=== PATIENT | female | born 2000 | race African-American/Black ===

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

== ENCOUNTER 2022-07-11 16:43 | Emergency (ER) | payer MEDICAID, SELFPAY ==
[2022-07-11 16:49] VITALS: BP 104/70; PULSE 87; RESP 18; TEMP 37.2; O2SAT 100; BMI 27.6
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
== END 2022-07-11 17:15 | disposition home or self-care (01) ==
PROVIDERS: Emergency Provider Emergency Medicine; PCP Pediatrics
DX: T24.201A Burn of second degree of unspecified site of right lower limb, except ankle and foot, initial encounter (principal); T31.0 Burns involving less than 10% of body surface; M79.604 Pain in right leg; X08.8XXA Exposure to other specified smoke, fire and flames, initial encounter; Y93.9 Activity, unspecified; Y92.9 Unspecified place or not applicable; Y99.9 Unspecified external cause status
CPT/HCPCS: 16025; 99282; 99283

== ENCOUNTER 2022-09-28 11:27 | Outpatient (REF) | payer MEDICAID, SELFPAY ==
[2022-09-28 13:14] LABS: MANUAL DIFF FLAG NO
[2022-09-28 13:29] LABS: Basophils Percent Auto 0.3 % (0-2); Eosinophils Absolute Auto 0.2 X10*3/uL (0.0-0.4); Eosinophils Percent Auto 1.6 % (0-4); Hematocrit 42.9 % (37.0-47.0); Imm Gran Abs Auto 0.02 X10*3/uL (0.00-0.03); Imm Gran Pct Auto 0.2 % (0.0-0.4); Lymphocytes Absolute Auto 2.1 X10*3/uL (1.2-4.9); Lymphocytes Percent Auto 23.1 % (20-40); Mean Corpuscular HGB Conc 32.6 g/dl (31.0-35.0); Mean Corpuscular Hemoglobin 27.6 pg (27.0-33.0); Mean Corpuscular Volume 84.4 fL (80.0-98.0); Mean Platelet Volume 10.3 fL (9.4-12.3); Monocytes Absolute Auto 0.6 X10*3/uL (0.1-1.2); Monocytes Percent Auto 6.4 % (2-11); Neutrophils Absolute Auto 6.4 x10*3/uL (2.0-8.3); Neutrophils Percent Auto 68.4 % (45-73); Platelet Count 320 X10*3/uL (160-400); Red Blood Count 5.08 X10*6/uL (4.20-5.50); Red Cell Distribution Width 13.6 % (11.0-16.0); White Blood Count 9.3 X10*3/uL (4.8-10.8)
[2022-09-28 14:55] LABS: CT PCR NOT DETECTED (Not Detect.); NG PCR NOT DETECTED (Not Detect.)
[2022-09-28 15:17] LABS: Alanine Aminotransferase 22 U/L (0-31); Albumin Level 4.4 g/dL (3.5-5.0); Alkaline Phosphatase 74 U/L (39-117); Anion Gap 15 (12-20); Aspartate Amino Transferase 22 U/L (5-31); Bilirubin Total 0.7 mg/dL (0.0-1.0); Blood Urea Nitrogen 13 mg/dL (9-16); Calcium 9.8 mg/dL (8.4-10.2); Carbon Dioxide 20 mmol/L (22-29); Chloride 107 mmol/L (96-108); Cholesterol 142 mg/dL; Estimated Glomerular Filt Rate > 60; Glucose Random 89 mg/dL (60-115); HDL Cholesterol 47 mg/dL; LDL Cholesterol Calculated 86 mg/dl; Potassium 3.8 mmol/L (3.3-5.1); Sodium 138 mmol/L (135-145); Total Protein 7.4 g/dL (6.5-8.0); Triglycerides 49 mg/dL
[2022-09-29 04:06] LABS: Syphilis Screen Nonreactive (Nonreactive)
[2022-09-29 04:25] LABS: ~HepC Num1 0.23 S/CO (0.00-0.79); ~Hepatitis C Antibody Nonreactive (Nonreactive)
== END 2022-09-28 11:28 | disposition home or self-care (01) ==
LOC: HO.HHCL 11:27
PROVIDERS: Visit Provider Nurse Practitioner Family
DX: Z00.00 Encounter for general adult medical examination without abnormal findings (principal); Z11.3 Encounter for screening for infections with a predominantly sexual mode of transmission
CPT/HCPCS: 0353U; 80053; 80061; 85025; 86780; 86803

== ENCOUNTER 2024-09-01 22:01 | Emergency (ER) | payer BC, SELFPAY ==
[2024-09-01 22:28] VITALS: BP 100/54; PULSE 80; RESP 18; TEMP 36.8; O2SAT 100; BMI 32.1
--- NOTE | 2024-09-02 03:39 | ED.WOUNDLAC ---
HPI - Wound/Laceration General Chief Complaint: Wound/Laceration Stated Complaint: Cut right hand Time Seen by Provider: 09/02/24 03:39 Source: patient Mode of arrival: ambulatory Limitations: no limitations History of Present Illness ED Provider: Dr. Karina Kumar HPI narrative: 25-year-old female with no significant past medical history presenting after a trip and fall at work. Patient fell forward into a meat slicing machine and sliced the volar aspect medial right wrist. Bleeding was controlled with a Band-Aid. She is up-to-date on her tetanus shot. No other injury. She takes no medications including blood thinners. Had been feeling well prior to the fall. Denies recent illness including fevers or chills, cough or cold-type symptoms, chest pain, difficulty breathing, abdominal pain, nausea or vomiting. Related Data Allergies Allergy/AdvReac Type Severity Reaction Status Date / Time No Known Allergies (No Known Allergy Verified 09/01/24 22:34 Allergies*) Review of Systems Review of Systems: Yes all other systems are reviewed and are negative (As per HPI) [facility] Past Medical History Attestation statement: The following information was validated with the patient. [facility] Narrative: Up-to-date on vaccines, no past medical history denies alcohol or illicit substance use Medical History No active medical problems Social History Social History Advance Directives: No Advance Directives Information Provided: Yes Physical Exam Vital Signs: Vital Signs: Last Vital Signs Temp 98.2 F 09/01/24 22:28 Pulse 80 09/01/24 22:28 Resp 18 09/01/24 22:28 BP 100/54 L 09/01/24 22:28 Pulse Ox 100 09/01/24 22:28 O2 Del Method Room Air 09/01/24 22:28 BMI result Body Mass Index 32.1 GENERAL: Well-Appearing, conversant, no acute distress. SKIN: Normal skin color for ethnicity, no rashes noted, superficial 1 cm laceration overlying the volar aspect of the medial bright wrist, bleeding controlled, neurovascularly intact, no tendon involvement. HEENT: Normocephalic, atraumatic, no stridor, EOMI. CHEST: Heart regular rate and rhythm, no murmurs, symmetric chest rise and fall. PULMONARY: Clear to auscultation bilaterally, no labored breathing, no wheezes/rhales/rhonchi. ABDOMINAL: Soft, nondistended, nontender, positive bowel sounds in all quadrants. : Deferred. MUSCULOSKELETAL: Normal tone, full range of motion, no deformities, no peripheral edema. NEURO: Alert and oriented x3, CN II through XII intact, equal strength and sensation bilateral upper and lower extremities, no focal neurologic deficits. PSYCHIATRIC: Normal affect, fluid speech, good eye contact and appropriate demeanor. Medical Decision Making Medical Decision Making MDM Narrative: Patient presents today with chief complaint of laceration. Differential diagnosis would include foreign body, tendon or ligament injury, open fracture, wound infection, among many others. Laceration was thoroughly cleansed in the emergency department and probed for any foreign bodies. There were none. There is no evidence of tendon or ligament injury at this time based on physical exam. There is a normal neurovascular examination before and after repair. Wound care was discussed with patient as well as a specific time to have viky or sutures removed if necessary. Signs infection were also discussed and the patient was urged to come immediately back to the emergency department for reevaluation if they do occur. Differential Diagnosis Differential Diagnoses: The differential diagnosis associated with the presentation includes (As above) Procedures Laceration Laceration 1: Site: upper extremity (Wrist) Side (If applicable): right Size (cm): 1 Description: linear Depth: simple, single layer Pre-repair: wound explored, irrigated extensively and deep structures intact Skin layer closed with: other (Steri-Strips) Number of sutures: 2 Discharge Plan Discharge Clinical Impression: Laceration of right wrist without complication, Fall from slip, trip, or stumble, Work related injury Patient Disposition: Home, Self-Care Instructions: Laceration Without Closure (ED) Additional Instructions: Keep your wound clean and dry for the next 24 hours. After that you may get the area wet but pat it dry. Do not scrub the skin. Return to the emergency department with any new or worsening symptoms including: Drainage from your wound, fevers greater than 100?, redness that tracks away from your wound. Call 911 with any medical emergency. Stand Alone Forms: Work/School Release Print Language: Vincentian
[2024-09-02 05:34] VITALS: BP 132/84; PULSE 82; RESP 18; TEMP 36.3; O2SAT 100
[2024-09-02 05:37] VITALS: BP 132/84; PULSE 82; RESP 18; TEMP 36.3; O2SAT 100
== END 2024-09-02 05:40 | disposition home or self-care (01) ==
PROVIDERS: Emergency Provider Emergency Medicine
DX: S61.511A Laceration without foreign body of right wrist, initial encounter (principal); M25.531 Pain in right wrist; X58.XXXA Exposure to other specified factors, initial encounter; Y93.9 Activity, unspecified; Y92.9 Unspecified place or not applicable; Y99.8 Other external cause status
CPT/HCPCS: 12001; 99283; 99284

== ENCOUNTER 2024-09-24 14:22 | Emergency (ER) | payer BC, SELFPAY ==
[2024-09-24 14:27] VITALS: BP 120/56; PULSE 101; RESP 17; TEMP 36.3; O2SAT 96; BMI 31.8
--- NOTE | 2024-09-24 14:28 | ED_ITS ---
HPI - General Adult General Chief complaint: Upper Respiratory Symptoms Stated complaint: Sore throat, cough Time Seen by Provider: 09/24/24 14:35 Source: patient Mode of arrival: ambulatory Limitations: no limitations History of Present Illness ED Provider: ASHLEY HERRON PA-C HPI narrative: 24 year old female presents to the ED today for evaluation of sore throat, cough, and subjective fevers x2-3 days. 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 Denies any known sick contacts. Denies headache, dizziness, sob, abdominal pain, N/V/D, dysphagia. Related Data Previous Rx's ?Medication ?Instructions ?Recorded benzocaine 15 mg-menthol 2.6 mg 1 kristin mucous membrane Q2-4H PRN 09/24/24 lozenges (Cepacol Sore Throat sore throat #16 ea (benzocaine-menthol)) benzonatate 100 mg capsule 100 mg PO BID PRN cough #20 caps 09/24/24 penicillin V potassium 500 mg 500 mg PO BID 10 days #2 0 tabs 09/24/24 tablet Allergies Allergy/AdvReac Type Severity Reaction Status Date / Time No Known Allergies (No Known Allergy Verified 09/24/24 14:28 Allergies*) Review of Systems Review of Systems: Yes all other systems are reviewed and are negative [facility] Past Medical History Attestation statement: The following information was validated with the patient. Source: old records reviewed and nursing notes reviewed Medical History No active medical problems Social History Social History Advance Directives: No Advance Directives Information Provided: Yes Do you have a plan to hurt others: No Plan Physical Exam ED Vital Signs: Vital Signs - 24 hr 09/24/24 14:27 09/24/24 15:31 Temperature 97.3 F 97.3 F Pulse Rate 101 H 101 H Respiratory Rate 17 17 Blood Pressure 120/56 L 120/56 L Pulse Oximetry 96 96 Oxygen Delivery Method Room Air Room Air BMI result Body Mass Index 31.8 tachycardic General: Well appearing, in no acute distress. Skin: Warm, dry, intact. No rashes or lesions. Head: Normocephalic, atraumatic. EENT: Hearing is intact b/l. Conjunctiva clear. Sclera is anicteric. PERRLA. EOM intact. posterior oropharynx erythematous, no tonsillar exudates or peritonsillar masses, uvula midline, controlling secretions, speaking in complete sentences, no muffled voice Neck: Supple without LAD Cardiac: Chest wall symmetric. RRR Lungs: Normal respiratory effort without accessory muscle use. CTA bilaterally Abdomen: Soft, non-tender, non-distended. No rebound tenderness or guarding. Positive BS x4. Back: No midline spinous or paraspinal tenderness. No step off deformity. Ext: Upper and lower extremities atraumatic, without tenderness, deformity, swelling or erythema Neuro: AOx3. Normal speech. Ambulating with steady gait Course Course Course Narrative: Patient tested positive for both strep throat and COVID. Discussed results with patient. Will send penicillin, Cepacol throat lozenges and Tessalon Perles to pharmacy for treatment. Discussed symptomatic treatment for COVID. Note provided for work. Patient has remained stable throughout ED visit today. Discussed worrisome signs and symptoms and when to return to the ED. All questions answered at this time. Patient is agreeable with disposition and stable for discharge. Medical Decision Making Medical Decision Making [facility] Narrative: 24 year old female presents to the ED today for evaluation of sore throat, cough, and subjective fevers x2-3 days. patient is mildly tachycardic, vitals are otherwise WNL. She is well-appearing and in no acute distress. Posterior oropharynx is slightly erythematous without tonsillar exudates or peritonsillar masses. Uvula midline. Controlling secretions, speaking complete sentences. No muffled voice. No lymphadenopathy. Lungs clear. Differential diagnosis includes viral syndrome, strep throat. Unlikely mono, [employer], retropharyngeal abscess, epiglottitis, pneumonia. Plan for viral and strep swabs with re-evaluation. Differential Diagnosis Differential Diagnoses: The differential diagnosis associated with the presentation includes as above Admission/Observation not indicated Lab Data [facility] Lab Attestation statement: I reviewed the patient's lab results. as above. Labs: Lab Results 09/24/24 Range/Units 14:39 Influenza Type A (PCR) NEGATIVE (Negative) Influenza Type B (PCR) NEGATIVE (Negative) RSV RNA Qual (PCR) NEGATIVE (Negative) SARS-CoV-2 RNA (RT-PCR) POSITIVE A (Negative) S. pyogenes GrpA HARI Positive A (Negative) External Record Review External record reviewed: Inpatient record Prescription Management I considered prescription management with: Antibiotic (Penicillin) and Other (Cepacol throat lozenges, Tessalon Perles) Social Determinants Patient?s care significantly limited by Social Determinants of Health including: Other Social Determinant of Health Critical Care Time Critical Care Time Critical Care Time: No Discharge Plan Discharge Clinical Impression: Acute streptococcal pharyngitis, COVID-19 Patient Disposition: Home, Self-Care Instructions: Strep Throat (ED), COVID-19 (Coronavirus Disease 2019) (ED) Additional Instructions: You were seen in the ED today for evaluation of sore throat. You tested positive for strep throat and covid. You tested negative for flu, rsv. Penicillin is an antibiotic that has been sent to your pharmacy. Take this twice daily for the next 10 days to treat strep throat. Do not stop taking these antibiotics early or miss any doses as this may cause infection to return or worsen. Cepacol throat lozenges have been sent to your pharmacy to help with throat pain. Take Ibuprofen or Tylenol as needed for fevers or body aches.? Quarantine for 5 days and ensure you wear a mask. After 5 days you should wear a mask for 5 days after that.? Practice social distancing and good hand hygiene. Drink plenty of fluids. Make sure to change your toothbrush as this contains bacteria. Strep throat is contagious. If anyone else in your household is exhibiting symptoms, please advise them to come to the ED, urgent care, or to see their primary care provider. Follow up with your primary care provider this week. Return to the Emergency Department if you experience worsening or uncontrolled pain, tongue swelling, difficulty swallowing, change in your voice, difficulty breathing, fevers 100.4?F or greater, recurrent vomiting, development of a rash, or any other concerning symptoms. In the case of emergency, call 911.? Prescriptions: New Cepacol Sore Throat (erlinda-men) 15-2.6 mg lozenge 1 kristin mucous membrane Q2-4H PRN (Reason: sore throat) Qty: 16 0RF benzonatate 100 mg capsule 100 mg PO BID PRN (Reason: cough) Qty: 20 0RF penicillin V potassium 500 mg tablet 500 mg PO BID 10 Days Qty: 20 0RF Referrals: Physician,Unknown J [Primary Care Provider, Medical] Stand Alone Forms: Work/School Release Interventions: ED Discharge Assessment Last Done: 09/24/24 15:31 Discharge Date/Time: 09/24/24 15:34 Print Language: Yoruba
[2024-09-24 14:54] LABS: IDNOW Serial# 55D5AD1C; Strep A Nucleic Acid Positive (Negative)
--- OUTSIDE RECORDS SUMMARY | 2024-09-24 15:18 | XMS_ITS | Clinical Summary ---
Author Organization [employer] Address [address] [place] [address] [address], [place] [address] Care Team Providers Care Airframe And Powerplant Technician Name Role Phone Shellie Dhillon NP Primary Care Provider [phone] Allergies No known active allergies Medications medroxyPROGESTE Víctor (Depo-Provera) 150 MG/ML injection Inject 1 mL (150 mg) into the shoulder, thigh, or buttocks every 3 (three) months. 1 mL 3 09/07/2022 Active Active Problems Problem Noted Date Diagnosed Date Seasonal allergic rhinitis 09/27/2022 Immunizations Immunization Administration Dates Next Due DTaP 05/15/2007, 7,05/26/2003,03/29 DTaP, 5 pertussis antigens 2002 HPV 9-Valent 08/02/2014 HPV, Unspecified 03/30/2015,10/05/2014 Hep A, ped/adol, 2 dose 04/27/2008,11/25/2006 Hep B, Adolescent or Pediatric 05/26/2003,2003,2002 HiB, unspecified 05/26/2003,03/29/2003 Hib (PRP-T) 2002 IPV 05/15/2007, 7,05/26/2003,03/29,2002 Influenza injectable quadriv alent preservative free 12/01/2020,04/24/2018,01/11/2016,11/19 MMR 05/15/2007,11/25/2006 Meningococcal MCV4P ACYW-135 12/01/2020,10/04/19 16 Pfizer Covid-19 Vaccine 12+ Bivalent 09/28/2022 Pneumococcal Conjugate PCV 13 05/26/2003, 004,2002 Tdap 10/04/2015 Varicella 11/25/2006,05/16/2004 Family History Medical History Relation Name Comments Diabetes type II Maternal Grandmother Heart attack Maternal Grandmother Stroke Maternal Grandmother Bipolar disorder Mother Diabetes type II Paternal Grandmother Relation Name Status Comments Maternal Grandmother Mother Paternal Grandmother Social History Tobacco Use Types Packs/Day Years Used Date Smoking Tobacco: Never Passive Smoke Exposure: Never Smokeless Tobacco: Never Tobacco Cessation:Counseling Given: Not Answered Alcohol Use Standard Drinks/Week Comments Yes 0 (1 standard drink = 0.6 oz pur e alcohol) occasional glass of wine Depression Answer Date Recorded Patient Health Questionnaire-9 Score 0 09/28/2022 Housing Stability Answer Date Recorded What is your housing situation today? I have liana turner 12/31/[address] you li ve. Do you have problems with any of the following? None of the above 12/31/2022 Food Insecurity Answer Date Recorded Within the past 12 months, y ou worried that your food would run out before you got money to buy more: Never True 12/31/2022 Within the past 12 months,th e food you bought just didn't last and you didn't have enough money to get more: Never True 07/2022 Transportation Answer Date Recorded In the past 12 months, has l ack of transportation kept you from medical appts, meetings, work or from getting things needed for daily living? No 12/31/2022 Utilities Answer Date Recorded In the past 12 months, has t he electric, gas, oil or water company threatened to shut off services in your home? No 12/31/2022 Depression Answer Date Recorded Patient Health Questionnaire-2 Score 0 09/28/2022 Comments Unknown Sex and Gender Information Value Date Recorded Sex Assigned at Female 12/25/2021 10:30 AM EDT Legal Sex Female 10:30 AM EDT Gender Identity Female 12/25/2021 10:30 AM EDT Sexual Orientation Don't know 12/25/2021 10 :30 AM EDT Last Filed Vital Signs Vital Sign Reading Time Taken Comments Blood Pressure 112/66 09/28/2022 10:31 AM EDT Pulse 74 09/28/2022 10:31 AM EDT Temperature 36.8 C (98.3 F) 09/28/2022 10:31 AM EDT Respiratory Rate 16 09/28/2022 10:31 AM EDT Oxygen Saturation 99% 09/28/2022 10:31 AM EDT Inhaled Oxygen Concentration - - Weight 56.4 kg (124 lb 6 oz) 09/28/2022 10:31 AM EDT Height 144.8 cm (4' 9 ) 09/28/2022 10:31 AM EDT Body Mass Index 26.91 09/28/2022 10:31 AM EDT Plan of Treatment Health Maintenance Due Date Last Done Comments HIV Screening 2002 Disability Screening 2002 Alcohol/Substance Use Screening 2014 Family Planning (PISQ) 2017 Meningococcal B Vaccine (1 of 2 - Standard) 2018 Pap Smear 08/23/2023 Tobacco Screening 09/08/2023 09/07/2022 Chlamydia and Gonorrhea Screening 09/29/2023 09/28/2022, 10/11/2021, 07/18/2021, Additional history exists Depression Screening 09/29/2023 09/28/2022, 09/29/19 23 SDOH Screening 09/29/2023 09/28/2022 COVID-19 Vaccine ( season) 2023 09/28/2022, 07/27/2021, 08/30/2020, Additional history exists Influenza Vaccine (#1) 2024 , 04/24/2018, 01/11/2016, Additional history exists DTaP/Tdap/Td Vaccines (6 - Td or Tdap) 10/03/2025 10/04/2015, 05/15/2007, 11/25/2006, Additional history exists Zoster Vaccines (1 of 2) 2052 RSV Patients and Patients Aged 60 years or older (1 - 1-dose 75+ series) 2077 HIB Vaccines Aged Out 05/26/2003, 03/2003, 2002 No longer eligible based on patient's age to complete this topic Hepatitis B Vaccines Completed 05/26/2003, 03/29/2003, 2002 Pneumococcal Vaccine: Pediatrics (0 to 5 Years) and At-Risk Patients (6 to 49) Years Aged Out 05/26/2003, 03/29/2003, 2002 No longer eligible based on patient's age to complete this topic IPV Vaccines Completed 05/15/2007, 02/2006, 05/26/2003, Additional history exists Hepatitis A Vaccines Completed 04/27/2008, 11/26/19 07 HPV Vaccines Completed 03/30/2015, 09/25, 08/02/2014 Meningococcal Vaccine Completed 12/01/2020, 016 Hepatitis C Screening Completed 09/28/2022 RSV under 20 months Aged Out No longe r eligible based on patient's age to complete this topic Rotavirus Vaccines Aged Out No longer eligible based on patient's age to complete this topic Procedures Procedure Name Priority Date/Time Associated Diagnosis Comments HEPATITIS C ANTIBODY REFLEX Routine 09/28/2022 11:31 AM EDT CHLAMYDIA/N. GONORRHOEAE RNA, TMA, UROGENITAL Routine 09/28/2022 11:31 AM EDT Routine general medical examination at a health care facility from Last 3 Months or Most Recently Relevant to Health Maintenance Results * Hepatitis C Antibody Reflex (09/28/2022 11:31 AM EDT) Hepatitis C Antibody Nonreactive Nonreactive [facility] Comment:Antibodies to HCV no t detected; does not exclude early acuteHCV infection. 09/28/2022 11:3 1 AM EDT 09/28/2022 1:10 PM EDT us Silvia Edmonds GENERAL FARM MANAGER LAB BLOOD ORDERABLES Final Resu lt [facility] [address] [place] [phone] * Chlamydia/N. Gonorrhoeae RNA, TMA, Urogenitial (09/28/2022 11:31 AM EDT) CT PCR NOT DETECTED Not Detect. [facility] Comment:A not detected test result does not exclude the possibilityof infection because test results can be affected byimproper specimen collection, concurrent antibiotic therapy,or the number of organisms in the specimen which may bebelow the sensitivity of the test. As with many diagnostictests, results from the Xpert CT/NG assay should beinterpreted in conjunction with other laboratory andclinical data available to the clinician.Xpert CT/NG performance has not been evaluated in patientsless than 14 years of age. The assay should not be used forthe evaluationof suspected sexual abuse or for other medico-legalindications. Additional testing is recommended in anycircumstance when false positive or false negative resultscould lead to adverse medical, social or psychologicalconsequences. NG PCR NOT DETECTED Not Detect. [facility] Comment:A not detected test result does not exclude the possibilityof infection because test results can be affected byimproper specimen collection, concurrent antibiotic therapy,or the number of organisms in the specimen which may bebelow the sensitivity of the test. As with many diagnostictests, results from the Xpert CT/NG assay should beinterpreted in conjunction with other laboratory andclinical data available to the clinician.Xpert CT/NG performance has not been evaluated in patientsless than 14 years of age. The assay should not be used forthe evaluationof suspected sexual abuse or for other medico-legalindications. Additional testing is recommended in anycircumstance when false positive or false negative resultscould lead to adverse medical, social or psychologicalconsequences. Urine, Random 09/28/2022 11: 31 AM EDT 09/28/2022 1:04 PM EDT Narrative [facility] - 09/28/2022 2:55 PM EDT Urine Silvia [facility] MICROBIOLOGY - [facility] Final Result [facility] [address] [place] [phone] from Last 3 Months or Most Recently Relevant to Health Maintenance Insurance [place] [address] C3 Care Teams Airframe And Powerplant Technician Relationship Specialty Start Date End Date Shellie Dhillon NP [address] [place] [id number] PCP - General Family Medicine 10/30/23
[2024-09-24 15:22] LABS: Resp Syncy Virus RNA Qual PCR NEGATIVE (Negative); SARS COV2 PCR INHOUSE POSITIVE (Negative)
[2024-09-24 15:31] VITALS: BP 120/56; PULSE 101; RESP 17; TEMP 36.3; O2SAT 96
== END 2024-09-24 15:34 | disposition home or self-care (01) ==
PROVIDERS: Physician Assistant Medical; Emergency Provider Emergency Medicine Emergency Medical Services
DX: U07.1 COVID-19 (principal); J02.0 Streptococcal pharyngitis; R05.9 Cough, unspecified; R50.9 Fever, unspecified
CPT/HCPCS: 87637; 87651; 99282; 99283

== ENCOUNTER 2024-10-02 17:51 | Outpatient (REF) | payer BC, SELFPAY ==
[2024-10-03 02:13] LABS: Bacterial Vaginosis PCR POSITIVE (Negative); Candida Group PCR NOT DETECTED (Not Detect); Candida glab krusei PCR NOT DETECTED (Not Detect); Trichomonas vaginalis PCR NOT DETECTED (Not Detect)
[2024-10-03 02:43] LABS: CT PCR DETECTED (Not Detect.); NG PCR NOT DETECTED (Not Detect.)
== END 2024-10-02 17:52 | disposition home or self-care (01) ==
LOC: HO.HHCLNP 17:51
PROVIDERS: Visit Provider General Practice
DX: R21 Rash and other nonspecific skin eruption (principal); Z20.2 Contact with and (suspected) exposure to infections with a predominantly sexual mode of transmission
CPT/HCPCS: 81515; 87491; 87591

== ENCOUNTER 2024-12-10 20:57 | Emergency (ER) | payer BC, SELFPAY ==
--- NOTE | ~2024-12-10 | XR_ITS ---
CLINICAL HISTORY: injury, 2ND FINGER INJURY 3 view right hand Comparison: None provided Findings: No fractures or dislocations. No significant loss of joint space or osteophytes. No erosions. No radiopaque foreign body. IMPRESSION: 1. No acute findings This document has been electronically signed by: Alex Cruz MD, PHD on 12/11/2024 00:30:16
[2024-12-10 21:10] VITALS: BP 119/71; PULSE 79; RESP 16; TEMP 36.6; O2SAT 97
--- NOTE | 2024-12-10 22:36 | ED_ITS ---
HPI - Extremity Problem General Chief complaint: Extremity Injury, Upper Stated complaint: right finger nail inj Time Seen by Provider: 12/10/24 22:34 Source: patient, RN notes reviewed and old records reviewed Mode of arrival: ambulatory Limitations: no limitations History of Present Illness ED Provider: ARACELIS Leone HPI Narrative: 24-year-old female without significant medical history presents to ED after injury to R 2nd digit. Patient states she was listening to music with air pods when they fell out of her ears and her young puppy grabbed the air pod in his mouth. Patient went to grab to puppy to prevent him from eating it and she jammed the R 2nd digit into her bed frame and noticed the entire artifical nail lift from the nail bed with bleeding and pain. Related Data Previous Rx's ?Medication ?Instructions ?Recorded benzocaine 15 mg-menthol 2.6 mg 1 kristin mucous membrane Q2-4H PRN 09/24/24 lozenges (Cepacol Sore Throat sore throat #16 ea (benzocaine-menthol)) benzonatate 100 mg capsule 100 mg PO BID PRN cough #20 caps 09/24/24 penicillin V potassium 500 mg 500 mg PO BID 10 days #2 0 tabs 09/24/24 tablet Allergies Allergy/AdvReac Type Severity Reaction Status Date / Time No Known Allergies (No Known Allergy Verified 12/10/24 21:11 Allergies*) Review of Systems 2 Review of Systems: CONST: Negative for fever, body aches and chills. HENT: Negative for neck pain/stiffness, headache, congestion, sore throat, swelling. EYES: Negative for discharge/pain or vision changes. RESP: Negative for cough/hemoptysis and shortness of breath. CV: Negative chest pain, difficulty breathing, palpitations. ABD: Negative pain, nausea, vomiting. : Negative increase frequency, dysuria, blood in urine or stool. MUSC: Negative for muscle aches, edema. POS R 2nd digit pain, with bleeding of the nail SKIN: Negative rash, lesions/sores. NEURO: Negative headache, dizziness, weakness. Yes all other systems are reviewed and are negative PMFSH Past Medical History Medical History No active medical problems Social History Social History Advance Directives: No Advance Directives Information Provided: No Physical Exam 2 Vital Signs: Vital Signs: Last Vital Signs Temp 97.9 F 12/10/24 21:10 Pulse 79 12/10/24 21:10 Resp 16 12/10/24 21:10 BP 119/71 12/10/24 21:10 Pulse Ox 97 12/10/24 21:10 O2 Del Method Room Air 12/10/24 21:10 BMI result Body Mass Index 30.0 GENERAL APPEARANCE: ?AxOx4, generally well-appearing, no acute distress. HEENT: ?NC, AT. MMM. EOMI, clear conjunctiva, oropharynx clear. NECK: ?Supple without lymphadenopathy.? No stiffness or restricted ROM. HEART:? Normal rate and regular rhythm, normal S1/S1, no m/r/g LUNGS:? CTAB, moving air well. No crackles or wheezes are heard. ABDOMEN: ?Soft, nontender, nondistended with good bowel sounds heard. BACK: No CVAT, no obvious deformity. EXTREMITIES: ?Without cyanosis, clubbing or edema. TTP of R 2nd digit over DIP, full ROM intact, SILT, radial pulses 2+, there is an artifical nail attached to the real nail, no obvious hematoma seen, I am unable to lift the nail off the nail bed, no injury to the nail bed matrix. NEUROLOGICAL: ?Grossly nonfocal. Alert and oriented, moving all 4 extremities. Observed to ambulate with normal gait. Skin: ?Warm and dry without any rash. Medications Administered Discontinued Medications Generic Name Dose Route Start Last Admin Trade Name Yue PRN Reason Stop Dose Admin Acetaminophen 975 mg 12/10/24 23:45 12/11/24 00:12 Acetaminophen 325 Mg Tablet PO 12/10/24 23:46 975 mg ONCE ONE Administration Medical Decision Making Medical Decision Making MDM Narrative: 24-year-old female without significant medical history presents to ED after injury to R 2nd digit. Patient states she was listening to music with air pods when they fell out of her ears and her young puppy grabbed the air pod in his mouth. Patient went to grab to puppy to prevent him from eating it and she jammed the R 2nd digit into her bed frame and noticed the entire artifical nail lift from the nail bed with bleeding and pain. On physical exam patient has TTP of R 2nd digit over DIP, full ROM intact, SILT, radial pulses 2+, compartments soft, there is an artificial nail attached to the real nail, no obvious hematoma seen, I am unable to lift the nail off the nail bed, no injury to the nail bed matrix, no abscess surrounding the nail or on the palmar aspect of the finger tip. XR R hand negative for fractures or acute findings. 2nd digit was irrigated with sterile saline and wrapped in bandage. Patient to be discharged with 7 day course of Keflex for bacterial coverage. I counseled patient to keep finger from being submerged in water or doing dishes. I counseled patient to abstain from nail salon until finger heals and pain subsides. Patient is in agreement with the plan. Differential Diagnosis Differential Diagnoses: The differential diagnosis associated with the presentation includes Compartment syndrome Finger fracture crush injury Paronychia Felon Nailbed matrix injury Admission/Observation Consideration of admission/observation: Escalation of care including admission/observation considered Lab Data MDM Lab Attestation statement: I reviewed the patient's lab results. Independent Interpretation I performed an independent interpretation of an: Plain X-Ray Interpretation: I personally interpreted the x-ray of the right hand which was negative for fracture or dislocation, I agree with the radiologist's interpretation Radiology Impression Discussion of test interpretation with radiology: I have reviewed the radiologist's reading. Radiologist Impression: XR right hand Findings: No fractures or dislocations. No significant loss of joint space or osteophytes. No erosions. No radiopaque foreign body. IMPRESSION: 1. No acute findings This document has been electronically signed by: Alex Cruz MD, PHD on 12/11/2024 00:30:16 Dictated By: Alex Cruz MD Signed By: <Electronically signed by Alex Cruz MD in OV> 12/11/24 0030 External Record Review External record reviewed: Inpatient record, Office record and Outpatient record Chronic Conditions Patient?s care impacted by: Other (No medical history) Discharge Plan Discharge Clinical Impression: Crush injury Patient Disposition: Home, Self-Care Additional Instructions: You were evaluated in the ED after injuring your right pointer finger. The x- ray of the hand was negative for fracture or dislocation. On physical exam there is no indication for removal of the nail today. The finger was cleaned, bacitracin applied and dressed in a bandage. Please keep this bandage intact for the next 24 hours, do not submerge in water or do dishes. You are being prescribed a 7 day course of Keflex for antibacterial coverage. Please follow up with your primary care doctor. Please return to the emergency department if you experience fevers, increased pain of the finger, pus drainage from the finger, or any new/worsening/concerning symptoms. Prescriptions: No Action Cepacol Sore Throat (erlinda-men) 15-2.6 mg lozenge 1 kristin mucous membrane Q2-4H PRN (Reason: sore throat) Qty: 16 0RF benzonatate 100 mg capsule 100 mg PO BID PRN (Reason: cough) Qty: 20 0RF penicillin V potassium 500 mg tablet 500 mg PO BID 10 Days Qty: 20 0RF Print Language: Persian
--- OUTSIDE RECORDS SUMMARY | 2024-12-10 22:49 | XMS_ITS | Encounter Summary ---
Author Organization [employer] Address [address] [place] [address] Care Team Providers Care Pharmaceutical Engineer Name Role Phone Shellie Dhillon NP Primary Care Provider [phone] Encounter Details Date Type Department Care Team ([facility] st Contact Info) Description 10/05/2024 Orders Only [facility] [address] [place] [address] Eva Summers MD [address] [place] [address] Chlamydia (Primary Dx) Social History Tobacco Use Types Packs/Day Years Used Date Smoking Tobacco: Never Passive Smoke Exposure: Never Smokeless Tobacco: Never Alcohol Use Standard Drinks/Week Comments Yes 0 [...] Patient Health Questionnaire-2 Score 0 09/28/2022 Comments No Sex and Gender Information Value Date Recorded Sex Assigned at Female 12/25/2021 10:30 AM EDT Legal Sex Female 10:30 AM EDT Gender Identity Female 12/25/2021 10:30 AM EDT Sexual Orientation Don't know 12/25/2021 10 :30 AM EDT documented as of this encounter Plan of Treatment Upcoming Encounters Date Type Department Care Team (Late st Contact Info) Description 01/13/2025 10:00 AM EST Procedure Visit [facility] [address] [place] [address] Shellie Dhillon NP [address] [place] [address] documented as of this encounter Visit Diagnoses Diagnosis Chlamydia- Primary Other specified chlamydial infection, in conditions classified elsewhere and of unspecified site documented in this encounter Additional Health Concerns Assessment Noted Time PHQ-9 Depression Total Score: 0 09/29/19 23 10:34 AM EDT documented as of this encounter Care Teams Pharmaceutical Engineer Relationship Specialty Start Date End Date Shellie Dhillon NP [address] [place] [address] PCP - General Family Medicine 10/30/23 documented as of this encounter
--- OUTSIDE RECORDS SUMMARY | 2024-12-10 22:49 | XMS_ITS | Clinical Summary ---
Author Organization [facility] Address [address] [facility] 7t [place] [address] Care Team Providers Care Senior Production Manager Name Role Phone Shellie Dhillon NP Primary Care Provider [phone] Allergies No known active allergies Medications * This document contains information received from the source organization and may not represent a complete record from that organization. albuterol 108 (90 Base) MCG/ACT inhalerIndicatio ns:Wheezing Inhale 2 puffs every 4 (four) hours if needed for wheezing. 18 g 11/27/2024 Active Hospital, Clinic, or Other Facility Administered Medication Ordered Dose Route Frequency Start Date End Date Status medroxyPROGESTERone (Depo-Provera) injection 150 mgIndications:Encounter for counseling regarding contraception 150 mg IM Once 11/30/2024 Active medroxyPROGESTERone (Depo-Provera) injection 150 mgIndications:Encounter for counseling regarding contraception 150 mg IM Every 3 months 11/30/2024 Active Active Problems Problem Noted Date Diagnosed Date Seasonal allergic rhinitis 09/27/2022 Encounters * This document contains information received from the source organization and may not represent a complete record from that organization. Date Type Department Care Team Description 11/27/2024 10:30 AM EDT Office Visit [facility] [address] [place] [address] Shellie Dhillon NP Encounter to establish care with new provider (Primary Dx); Wheezing; Encounter for counseling regarding contraception; Breathing problem; Routine health maintenance; Positive screening for depression on 9-item Patient Health Questionnaire (PHQ-9) 11/27/2024 Population Health Risk Score [facility] [address] [place] [phone] Provider, Population Health Generic 11/27/2024 Travel 11/26/2024 Telephone [facility] [address] [place] [phone] Shellie Dhillon NP CHARTPREP 11/20/2024 Patient Outreach [facility] [address] [place], [place] [phone] Shellie Dhillon NP Pre-visit Planning (SDOH unable to reach [facility] ) 10/05/2024 Orders Only [facility] [address] [place] [phone] Eva Summers MD Chlamydia (Primary Dx) 10/04/2024 Results Follow-Up [facility] [address] [place] [phone] Eva Summers MD Bacterial Vaginosis, Chlamydia/N. Gonorrhoeae RNA, TMA, Vaginal 10/02/2024 1:20 PM EDT Office Visit [facility] [address] [place] [address] [phone] Eva Summers MD Rash of vulva (Primary Dx); Dietary counseling; Exercise counseling; Overweight; Bacterial vaginosis 10/02/2024 Travel from Last 3 Months Immunizations Immunization Administration Dates Next Due DTaP [...] Heart attack Maternal Grandmother Stroke Maternal Grandmother Anxiety disorder Mother Bipolar disorder Mother Diabetes type II Paternal Grandmother Relation Name Status Comments Maternal Grandmother Mother Paternal Grandmother Social History Tobacco Use Types Packs/Day Years Used Date Smoking Tobacco: Never Passive Smoke Exposure: Never Smokeless Tobacco: Never Tobacco Cessation:Counseling Given: Not Answered Alcohol Use Standard Drinks/Week Comments Yes 0 (1 standard drink = 0.6 oz pur e alcohol) occasional glass of wine Alcohol Answer Date Recorded How often do you have a drink containing alcohol ? 1 11/27/2024 How many drinks containing a lcohol do you have on a typical day when you are drinking? 0 11/27/2024 How often do you have six or more drinks on one occasion? 0 11/27/2024 Depression Answer Date Recorded Patient Health Questionnaire-9 Score 9 11/27/2024 Patient Health Questionnaire-9 Score 9 11/27/2024 Last PHQ-9: Questionnaire Data Not on file 1 Housing Stability Answer Date Recorded What is your housing situation today? I have liana turner 11/27/[address] you li ve. Do you have problems with any of the following? None of the above 11/27/2024 Food Insecurity Answer Date Recorded Within the past 12 months, y ou worried that your food would run out before you got money to buy more: Sometimes True 2024 Within the past 12 months,th e food you bought just didn't last and you didn't have enough money to get more: Sometimes True 11/27/2024 Transportation Answer Date Recorded In the past 12 months, has l ack of transportation kept you from medical appts, meetings, work or from getting things needed for daily living? Yes, it has kept me from medical appointments or getting medications. 11/27/2024 Utilities Answer Date Recorded In the past 12 months, has t he electric, gas, oil or water company threatened to shut off services in your home? No 11/27/2024 Depression Answer Date Recorded Patient Health Questionnaire-2 Score 2 11/27/2024 Internet Access Answer Date Recorded Internet Access Q1 Yes 11/27/2024 Internet Access Q2 Not on file 11/27/2024 Comments No Intention Date Recorded No desire to become (finding) 1 Sex and Gender Information Value Date Recorded Sex Assigned at Female 12/25/2021 10:30 AM EDT Legal Sex Female 10:30 AM EDT Gender Identity Female 12/25/2021 10:30 AM EDT Sexual Orientation Don't know 12/25/2021 10 :30 AM EDT Last Filed Vital Signs Vital Sign Reading Time Taken Comments Blood Pressure 120/78 11/27/2024 10:49 AM EDT Pulse 104 11/27/2024 10:49 AM EDT Temperature 36.7 C (98 F) 11/27/2024 10:49 AM EDT Respiratory Rate 24 11/27/2024 10:49 AM EDT Oxygen Saturation 98% 11/27/2024 10:49 AM EDT Inhaled Oxygen Concentration - - Weight 66.2 kg (146 lb) 11/27/2024 10:49 AM EDT Height 144.8 cm (4' 9 ) 11/27/2024 10:49 AM EDT Body Mass Index 31.59 11/27/2024 10:49 AM EDT Plan of Treatment Upcoming Encounters Date Type Department Care Team (Late st Contact Info) Description 01/13/2025 10:00 AM EST Procedure Visit [facility] [address] [place] [address] Shellie Dhillon NP [address] [place] [address] Health Maintenance Due Date Last Done Comments HIV Screening 2002 Meningococcal B Vaccine (1 of 2 - Standard) 2018 Pap Smear 08/23/2023 COVID-19 Vaccine ( season) 2024 09/28/2022, 07/27/2021, 08/30/2020, Additional history exists Influenza Vaccine (#1) 2024 , 04/24/2018, 01/11/2016, Additional history exists Depression Monitoring 05/28/2025 11/27/2024, 025 Chlamydia and Gonorrhea Screening 10/02/2025 10/02/2024, 09/28/2022, 10/11/2021, Additional history exists DTaP/Tdap/Td Vaccines (6 - Td or Tdap) 10/03/2025 10/04/2015, 05/15/2007, 11/25/2006, Additional history exists Alcohol/Substance Use Screening 11/27/2025 11/27/2024 Disability Screening 11/27/2025 11/27/2024 SDOH Screening 11/27/2025 11/27/2024 Family Planning (PISQ) 11/29/2025 11/29/2024 Tobacco Screening 11/29/2025 11/29/2024 Zoster Vaccines (1 of 2) 2052 RSV [...] Procedure Name Priority Date/Time Associated Diagnosis Comments CHLAMYDIA/N. GONORRHOEAE RNA, TMA, UROGENITAL Routine 10/02/2024 1:19 PM EDT Rash of vulva BACTERIAL VAGINOSIS PANEL Routine 10/02/2024 1:19 PM EDT Rash of vulva HEPATITIS C ANTIBODY REFLEX Routine 09/28/2022 11:31 AM EDT from Last 3 Months or Most Recently Relevant to Health Maintenance Results * (ABNORMAL) Bacterial Vaginosis (10/02/2024 1:19 PM EDT) TRICHOMONAS VAGINALIS DETECTION BY PCR NOT DETECTED Not Detect [facility] BACTERIAL VAGINOSIS DETECTION BY PCR POSITIVE(A) Negative [facility] Comment:The BV organism targ ets of the Xpert Xpress MVP test can becommensal in women; Xpert Xpress MVP positive results forbacterial vaginosis should be considered in conjunction withother clinical and patient information to determine thedisease status. Organisms that are not detected by the XpertXpress MVP test have also been reported to be associatedwith BV and aerobic vaginitis.The Xpert Xpress MVP test performance has not been evaluatedin patients under the age of 14. LYUBOV GROUP DETECTION BY PCR NOT DETECTED Not Detect [facility] Lyubov glab krusei PCR NOT DETECTED Not Detect [facility] Swab Vaginal structure / Unknown 10/02/2024 1:19 PM EDT 10/02/2024 5:52 PM EDT us Eva Summers MD LAB MICROBIOLOGY - GENERAL ORD ERABLES Final Result [facility] [address] [place] [address] [phone] * (ABNORMAL) Chlamydia/N. Gonorrhoeae RNA, TMA, Vaginal (10/02/2024 1:19 PM EDT) CT PCR DETECTED(A) Not Detect. [facility] Comment:Detected results may be observed after successful antibiotictreatment due to target nucleic acids from residualnon-viable chlamydia. As with many diagnostic tests, resultsfrom the Xpert CT/NG assay should be interpreted inconjunction with other laboratory and clinical dataavailable to the clinician.Xpert CT/NG performance has not been evaluated in patientsless than 14 years of age. The assay should not be used forthe evaluationof suspected sexual abuse or for other medico- legalindications. Additional testing is recommended inany circumstance when false positive or false negativeresults could lead to adverse medical, social orpsychological consequences.These results must be reported by the ordering clinician orclinical facility to the [facility]as required by state law. NG PCR NOT DETECTED Not Detect. [facility] Comment:A not detected test result [...] lead to adverse medical, social or psychologicalconsequences. Swab Vaginal structure / Unknown 10/02/2024 1:19 PM EDT 10/02/2024 5:52 PM EDT us Eva Summers MD LAB MICROBIOLOGY - GENERAL ORD ERABLES Final Result [facility] [address] [place] [address] [phone] * Hepatitis C Antibody Reflex (09/28/2022 11:31 AM EDT) Hepatitis C Antibody Nonreactive Nonreactive [facility] Comment:Antibodies to HCV no t detected; does not exclude early acuteHCV infection. 09/28/2022 11:3 1 AM EDT 09/28/2022 1:10 PM EDT us Silvia Ritaedmond [employer] LAB BLOOD ORDERABLES Final Resu lt [facility] [address] [place] [address] [phone] from Last 3 Months or Most Recently Relevant to Health Maintenance [facility] Care Teams Senior Production Manager Relationship Specialty Start Date End Date Shellie Dhillon NP [address] [place] [address] PCP - General Family Medicine 10/30/23
[2024-12-11 00:57] VITALS: BP 113/57; PULSE 87; RESP 20; TEMP 36.8; O2SAT 97
== END 2024-12-11 00:58 | disposition home or self-care (01) ==
PROVIDERS: Emergency Provider Student in an Organized Health Care Education/Training Program
DX: S67.190A Crushing injury of right index finger, initial encounter (principal); X58.XXXA Exposure to other specified factors, initial encounter; Y93.9 Activity, unspecified; Y92.009 Unspecified place in unspecified non-institutional (private) residence as the place of occurrence of the external cause
CPT/HCPCS: 73130; 99283

== ENCOUNTER → 2024-12-10 23:45 | Outpatient (BNV) | payer BC, SELFPAY | PROVIDERS: Emergency Provider Student in an Organized Health Care Education/Training Program; Visit Provider General Practice | DX: M79.644 Pain in right finger(s) (principal) | CPT/HCPCS: 73130 ==

== ENCOUNTER 2025-01-13 11:43 | Outpatient (REF) | payer BC, SELFPAY ==
--- OUTSIDE RECORDS SUMMARY | 2025-01-13 10:00 | XMS_ITS | Encounter Summary ---
Author Organization [employer] Address [address] [facility] 7[address] [place] [address] Care Team Providers Care Segmental Wall Installer Name Role Phone Shellie Dhillon NP Primary Care Provider [phone] Reason for Visit * Reason Comments Gynecologic Exam Encounter Details Date Type Department Care Team (Latest Contact Info) Description 01/13/2025 10:00 AM EST Procedure Visit [facility] [address] [place] [address] Shellie Dhillon NP [address] [place] [address] Encounter for Papanicolaou smear for cervical cancer screening (Primary Dx); Sexually transmitted disease; control counseling Social History Tobacco Use Types Packs/Day Years Used Date Smoking Tobacco: Never Passive Smoke Exposure: Never Smokeless Tobacco: Never Alcohol Use Standard Drinks/Week Comments Yes 0 (1 standard drink = 0.6 oz pur e alcohol) occasional glass of wine Alcohol Answer Date Recorded How often do you have a drink containing alcohol ? 0 01/13/2025 How many drinks containing a lcohol do you have on a typical day when you are drinking? 0 01/13/2025 How often do you have six or more drinks on one occasion? 0 01/13/2025 Depression Answer Date Recorded Patient Health Questionnaire-9 [...] Q2 Not on file 11/27/2024 Comments No Sex and Gender Information Value Date Recorded Sex Assigned at Female 12/25/2021 10:30 AM EDT Legal Sex Female 10:30 AM EDT Gender Identity Female 12/25/2021 10:30 AM EDT Sexual Orientation Don't know 12/25/2021 10 :30 AM EDT documented as of this encounter Last Filed Vital Signs Vital Sign Reading Time Taken Comments Blood Pressure 110/70 01/13/2025 10:29 AM EST Pulse 100 01/13/2025 10:29 AM EST Temperature 36.4 C (97.5 F) 01/13/2025 10:29 AM EST Respiratory Rate 20 01/13/2025 10:29 AM EST Oxygen Saturation 99% 01/13/2025 10:29 AM EST Inhaled Oxygen Concentration - - Weight 65.4 kg (144 lb 3.2 oz) 01/13/2025 10:29 AM EST Height 144.8 cm (4' 9 ) 01/13/2025 10:29 AM EST Body Mass Index 31.2 01/13/2025 10:29 AM EST documented in this encounter Plan of Treatment Upcoming Encounters Date Type Department Care Team (Late st Contact Info) Description 05/21/2025 1:30 PM EDT Office Visit [facility] [address] [place] [address], [place] [address] Hamida Rajput, OD [address] [place] [address] Scheduled Orders Name Type Priority Associated Diagnoses Orde r Schedule Pap Smear Pathology and Cytology Routine Encounter for Papanicolaou smear for cervical cancer screening Ordered: 01/13/2025 Chlamydia/N. Gonorrhoeae RNA, TMA, Vagina Microbiology Routine Sexually transmitted disease Ordered: 01/13/2025 HIV-1/2 Antigen and Antibodies, Fourth Generation, with Reflexes Lab Routine Sexually transmitted disease Expected: 01/13/2025 (Approximate), Expires: 01/13/2026 Bacterial Vaginosis, Yeast and Trich Microbiology Routine Sexually transmitted disease Expected: 01/13/2025 (Approximate), Expires: 01/13/2026 Syphilis Screen Lab Routine Sexually transmitted disease Expected: 01/13/2025 (Approximate), Expires: 01/13/2026 Hepatitis C Antibody with Reflex to HCV, RNA, Quantitative, Real-Time PCR Lab Routine Sexually transmitted disease Expected: 01/13/2025 (Approximate), Expires: 01/13/2026 documented as of this encounter Procedures Procedure Name Priority Date/Time Associated Diagnosis Comments POCT , URINE Routine 01/13/2025 11:11 AM EST control counseling documented in this encounter Results * POCT Urine (01/13/2025 11:11 AM EST) Preg Test, Ur Negative Negative, Indeterminate, None Detected, Invalid, Specimen unsatisfactory for evaluation, Weakly Positive, 2+ QC Media Lot # [id number] Lot# Expiration Date 13 Urine 01/13/2025 11:1 1 AM EST us Shellie Dhillon NP POINT OF CARE TEST ENTER/EDIT O RDERABLES Final Result documented in this encounter Visit Diagnoses Diagnosis Encounter for Papanicolaou smear for cervical cancer screening- Primary Sexually transmitted disease Unspecified venereal disease control counseling documented in this encounter Administered Medications Active Administered Medications - up to 3 most recent administrations Medication Order MAR Action Action Date Dose Rate Site medroxyPROGESTERone (Depo-Provera) injection 150 mg 150 mg, Intramuscular, Every 3 months, First dose on Sat11/30/24 at 1000, IM Q11-15 weeks, bring to office for injectionIndications:Encount er for counseling regarding contraception Given 01/13/2025 11:30 AM EST 150 mg Left Deltoid documented in this encounter Additional Health Concerns Assessment Noted Time PHQ-9 Depression Total Score: 9 11/28/19 25 11:41 AM EDT documented as of this encounter Care Teams Segmental Wall Installer Relationship Specialty Start Date End Date Shellie Dhillon NP [address] [place] [phone] PCP - General Family Medicine 10/30/23 documented as of this encounter
--- OUTSIDE RECORDS SUMMARY | 2025-01-13 22:52 | XMS_ITS | Encounter Summary ---
Author Organization [employer] Address [address] [facility] 7[address] [place] [address] Care Team Providers Care Vinyl Dipper Name Role Phone Shellie Dhillon NP Primary Care Provider [phone] Reason for Visit * Reason Onset Date Comments Encouter for Contracteptive Management Encounter Details Date Type Department Care Team ([facility] Contact Info) Description 01/13/2025 Telephone [facility] [address] [place] [address] Shellie Dhillon NP [address] [place] [address] Encouter for Contracteptive Management Social History Tobacco Use Types Packs/Day Years [...] AM EDT documented as of this encounter Miscellaneous Notes * Telephone Encounter - Sindy Cline RN - 01/13/2025 11:36 AM EST SUBJECTIVE: Chong Mcnair is a 24 y.o. year old female who presents for PCP visit and requesting depo provera at time of visit for contraceptive management. Standing order verified. Placed on 11/29/2024. Protocol for Depo-Provera initiation: Sexual intercourse within 5 days of Depo initiation: administer Depo, give prescription for emergency contraception (EC) and repeat urine HCG in 1 month Sexual intercourse more than 5 days of Depo initiation: administer Depo, repeat urine HCG in 1 month Patient has no known allergies. Immunization History Administered Date(s) Administered DTaP 03/29/2003, 05/26/2003, 11/25/2006, 05/15/2007 DTaP, 5 pertussis antigens 2002 HPV 9-Valent 08/02/2014 HPV, Unspecified 10/05/2014, 03/30/2015 Hep A, ped/adol, 2 dose 11/25/2006, 04/27/2008 Hep B, Adolescent or Pediatric 2002, 03/29/2003, 05/26/2003 HiB, unspecified 03/29/2003, 05/26/2003 Hib (PRP-T) 2002 IPV 2002, 03/29/2003, 05/26/2003, 11/25/2006, 05/15/2007 Influenza injectable quadrivalent preservative free 11/19/2014, 01/11/2016, 04/24/2018, 12/01/2020 MMR 11/25/2006, 05/15/2007 Meningococcal MCV4P ACYW-135 10/04/2015, 12/01/2020 Pfizer Covid-19 Vaccine 12+ 08/10/2020, 08/30/2020 Pfizer Covid-19 Vaccine 12+ Bivalent 09/28/2022 Pfizer Covid-19 Vaccine 12+ andrew-sucrose (Fitzpatrick Cap) 07/27/2021 Pneumococcal Conjugate PCV 13 2002, 03/29/2003, 05/26/2003 Tdap 10/04/2015 Varicella 05/16/2004, 11/25/2006 OBJECTIVE: No LMP recorded. There were no vitals filed for this visit. Lab Results Component Value Date PREGTESTUR Negative 01/13/2025 No results found for: RAPIDCHGONTR , GONORRHOEAEP , TRICHOMONASR Lab Results Component Value Date HEPCAB Nonreactive 09/28/2022 CTPCR DETECTED (A) 10/02/2024 NGPCR NOT DETECTED 10/02/2024 Tobacco Use History[1] Contraception counseling provided: Yes I emphasized that switching methods is common, and that they can discontinue using any method at any time. After today's discussion, they would like to use depo provera for contraceptive management. We discussed correct method use and indications for emergency contraceptive use. They can follow up at any time to discuss their contraceptive options, side effects they're experiencing, or to switch methods. Depo-Provera 150 mg/ml administered intramuscularly to: left deltoid. Medication was tolerated well. EDUCATION: The following side effects/prevention education were reviewed with Chong Mcnair and they confirmed understanding Spotting Headache Weight gain Hair loss Mood changes Proper condom use Risk reduction behavior ASSESSMENT: Contraceptive Management PLAN: Schedule is not open for blue team nurses to schedule next depo provera injection. Pt provided withnext window of March 31-April 28. Message forwarded to Blue team nurse for 02/12/25 to contact pt to schedule nurse visit for contraceptive management. Chong Mcnair agreeable to plan. Sindy Cline RN [1] Social History Tobacco Use Smoking Status Never Passive exposure: Never Smokeless Tobacco Never documented in this encounter Plan of Treatment Upcoming Encounters Date Type Department Care Team (Late st Contact Info) Description 05/21/2025 1:30 PM EDT Office Visit [facility] [address] [place], [place] [phone] TarHamida li, OD [address] [place] [address] documented as of this encounter Visit Diagnoses Not on filedocumented in this encounter Additional Health Concerns Assessment Noted Time PHQ-9 Depression Total Score: 9 11/28/19 25 11:41 AM EDT documented as of this encounter Care Teams Vinyl Dipper Relationship Specialty Start Date End Date Shellie Dhillon NP [address] [place] [address] PCP - General Family Medicine 10/30/23 documented as of this encounter
--- OUTSIDE RECORDS SUMMARY | 2025-01-13 22:52 | XMS_ITS | Clinical Summary ---
Author Organization [employer] Address [address] [facility] 7t [place] [address] Care Team Providers Care Mobile Phone Salesperson Name Role Phone Shellie Dhillon NP Primary Care Provider [phone] Allergies No known active allergies Medications * This document contains information received from the source organization and may not represent a complete record from that organization. albuterol 108 (90 Base) MCG/ACT inhalerIndicatio ns:Wheezing Inhale 2 puffs every 4 (four) hours if needed for wheezing. 18 g 01/12/2025 10:47 AM EST 11/27/2024 Active medroxyPROGESTER one (Depo-Provera) 150 MG/ML injectionIndicat ions: control counseling Inject 1 mL (150 mg) into the muscle every 3 (three) months. 1 mL 3 01/13/2025 11:24 AM EST 01/13/2025 Active Hospital, Clinic, or Other Facility Administered [...] organization. Date Type Department Care Team Description 01/13/2025 10:00 AM EST Procedure Visit [facility] [address] [place] [address] Shellie Dhillon NP Encounter for Papanicolaou smear for cervical cancer screening (Primary Dx); Sexually transmitted disease; control counseling 01/13/[address] [address] Shellie Dhillon NP [employer] 01/13/2025 Telephone [facility] [address] [place] [address] Shellie Dhillon NP 01/13/2025 Travel 01/12/2025 Telephone [facility] [address] [place] [address] Shellie Dhillon NP CHARTPREP 12/21/2024 Telephone [facility] OPTOMETRY [address] [place] [phone] Hamida Rajput, REINALDO 12/11/2024 Results Follow-Up [address] [address] Shellie Dhillon NP XR Hand 3+ Views Right 12/10/2024 Orders Only [facility] External Provider, [facility] 11/27/2024 10:30 AM EDT Office Visit [address] [address] Shellie Dhillon NP Encounter to establish care with new provider (Primary Dx); Wheezing; Encounter for counseling regarding contraception; Breathing problem; Routine health maintenance; Positive screening for depression on 9-item Patient Health Questionnaire (PHQ-9) 11/27/2024 Population Health Risk Score [facility] [address] [phone] Provider, Population Health Generic 11/27/2024 Travel 11/26/2024 Telephone [facility] MEDICINE [address] [place] [address] Shellie Dhillon NP CHARTPREP 11/20/2024 Patient Outreach [facility] [address] [place], [place] [phone] Shellie Dhillon NP Pre-visit Planning (SDOH unable to reach M ) from Last 3 Months Immunizations Immunization Administration [...] Mass Index 31.2 01/13/2025 10:29 AM EST Plan of Treatment Upcoming Encounters Date Type Department Care Team (Late st Contact Info) Description 05/21/2025 1:30 PM EDT Office Visit [facility] OPTOMETRY [address] [place] [address] Hamida Rajput, OD [address] [place] [address] Health Maintenance Due Date Last Done Comments [...] 10/03/2025 10/04/2015, 05/15/2007, 11/25/2006, Additional history exists Disability Screening 11/27/2025 11/27/2024 SDOH Screening 11/27/2025 11/27/2024 Family Planning (PISQ) 11/29/2025 11/29/2024 Alcohol/Substance Use Screening 01/13/2026 01/13/2025 Tobacco Screening 01/13/2026 01/13/2025 Zoster Vaccines (1 of 2) 2052 RSV [...] Routine 01/13/2025 11:11 AM EST control counseling XR HAND 3+ VIEWS RIGHT Routine 12/11/2024 12:30 AM EDT CHLAMYDIA/N. GONORRHOEAE RNA, TMA, UROGENITAL Routine 10/02/2024 1:19 PM EDT Rash of vulva HEPATITIS C ANTIBODY REFLEX Routine 09/28/2022 11:31 AM EDT from Last 3 Months or Most Recently Relevant to Health Maintenance Results * POCT Urine (01/13/2025 11:11 AM EST) Preg Test, Ur Negative Negative, Indeterminate, None Detected, Invalid, Specimen unsatisfactory for evaluation, Weakly Positive, 2+ QC Media Lot # [id number] Lot# Expiration Date 13,127 Urine 01/13/2025 11:1 1 AM EST us Shellie Dhillon NP POINT OF CARE TEST ENTER/EDIT O RDERABLES Final Result * XR Hand 3+ Views Right (12/11/2024 12:30 AM EDT) Anatomical Region Laterality Modality Upper Extremities, Hand Right Radiogra phic Imaging 12/11/2024 12:3 0 AM EDT Narrative 12/11/2024 12:31 AM EDT [address] [address] XRay Report Signed Patient: Chong Mcnair MR#: [id number] : 2000 Acct:[id number] Age/Sex: 24 / F ADM Date: 12/10/24 Loc: HO.ED Attending Dr: Ordering Physician: Isaiah Leone PA-C Date of Service: 12/10/24 Procedure(s): XR hand RT min 3V Accession Number(s): [id number] cc: Isaiah Leone PA-C; [facility] Reason for Exam: injury, 2ND FINGER INJURY CLINICAL HISTORY: injury, 2ND FINGER INJURY 3 view right hand Comparison: None provided Findings: No fractures or dislocations. No significant loss of joint space or osteophytes. No erosions. No radiopaque foreign body. IMPRESSION: 1. No acute findings This document has been electronically signed by: Alex Cruz MD, PHD on 12/11/2024 00:30:16 Dictated By: Alex Cruz MD Signed By: <Electronically signed by Alxe Cruz MD in OV> 12/11/2429 DD/ TD/TT: 12/11/2429 Physician Extender: Procedure Note Donotuseinterpreter, Image - 12/11/[address] [address] XRay Report Signed Patient: Chong Mcnair PMR#: [id number] : 2000Acct:[id number] Age/Sex: 24 / FADM Date: 12/10/24 Loc: HO.ED Attending Dr: Ordering Physician: Isaiah Leone PA-C Date of Service: 12/10/24 Procedure(s): XR hand RT min 3V Accession Number(s): [id number] cc: Isaiah Leone PA-C; [facility] Reason for Exam: injury, 2ND FINGER INJURY CLINICAL HISTORY: injury, 2ND FINGER INJURY 3 view right hand Comparison: None provided Findings: No fractures or dislocations. No significant loss of joint space or osteophytes. No erosions. No radiopaque foreign body. IMPRESSION: 1. No acute findings This document has been electronically signed by: Alex Cruz MD, PHD on 12/11/2024 00:30:16 Dictated By: Alex Cruz MD Signed By: <Electronically signed by Alex Cruz MD in OV> 12/11/2429 DD/ TD/TT: 12/11/2429 Physician Extender: [facility] External Provider IMG XR PROCEDURES Edited Result - Final * (ABNORMAL) Chlamydia/N. Gonorrhoeae RNA, TMA, Vaginal (10/02/2024 1:19 PM EDT) CT PCR DETECTED(A) Not Detect. [facility] Comment:Detected results may be observed after [...] the ordering clinician orclinical facility to the [facility] required by state law. NG PCR NOT DETECTED Not Detect. [facility] Comment:A not detected test result does [...] MICROBIOLOGY - GENERAL ORD ERABLES Final Result Performing Organization Address [facility] Co de Phone Number [facility] [address] [place] [phone] * Hepatitis C Antibody Reflex (09/28/2022 11:31 AM EDT) Hepatitis C Antibody Nonreactive Nonreactive [facility] Comment:Antibodies to HCV no t detected; does not exclude early acuteHCV infection. 09/28/2022 11:3 1 AM EDT 09/28/2022 1:10 PM EDT us Silvia BECKHAM LAB BLOOD ORDERABLES Final Resu lt Performing Organization Address [facility] Co de Phone Number [facility] [address] [place] [phone] from Last 3 Months or Most Recently Relevant to Health Maintenance Insurance [facility] C3 Care Teams Mobile Phone Salesperson Relationship Specialty Start Date End Date Shellie Dhillon NP [address] [place], [place] [phone] PCP - General Family Medicine 10/30/23
--- OUTSIDE RECORDS SUMMARY | 2025-01-13 22:52 | XMS_ITS | Encounter Summary ---
Author Organization [employer] Address [address] [facility] [address] 7[address] [place] [address] Care Team Providers Care Last Inserter Name Role Phone Shellie Dhillon NP Primary Care Provider [phone] Encounter Details Date Type Department Care Team ([facility] st Contact Info) Description 12/11/2024 Results Follow-Up [facility] MED[facility]INE [address] [place] [address] Shellie Dhillon NP [address] [place] [address] XR Hand 3+ Views Right Social History Tobacco Use Types Packs/Day Years [...] Description 05/21/2025 1:30 PM EDT Office Visit [facility] OPTOMETRY [address] [place] [address] Tarjen Hamida, OD [address] [place] [address] documented as of this encounter Visit Diagnoses Not on filedocumented in this encounter Additional Health Concerns Assessment Noted Time PHQ-9 Depression Total Score: 9 11/28/19 25 11:41 AM EDT documented as of this encounter Care Teams Last Inserter Relationship Specialty Start Date End Date Shellie Dhillon NP [address] [place] [address] PCP - General Family Medicine 10/30/23 documented as of this encounter
--- OUTSIDE RECORDS SUMMARY | 2025-01-13 22:52 | XMS_ITS | Encounter Summary ---
Author Organization [employer] Address [address] [facility] [address] [place] [address] Care Team Providers Care Home Weatherizing Worker Name Role Phone Shellie Dhillon NP Primary Care Provider [phone] Encounter Details Date Type Department Care Team ([facility] st Contact Info) Description 01/13/2025 Telephone [facility] MEDICINE [address] [place] [address] Shellie Dhillon NP [address] [place] [address] Social History Tobacco Use Types Packs/Day Years [...] the past 12 months, has t he [employer] gas, oil or water company threatened to [...] Description 05/21/2025 1:30 PM EDT Office Visit [facility] OPTOMETRY [address] [place] [address] TarHamida li, OD [address] [place] [address] documented as of this encounter Visit Diagnoses Not on filedocumented in this encounter Additional Health Concerns Assessment Noted Time PHQ-9 Depression Total Score: 9 11/28/19 25 11:41 AM EDT documented as of this encounter Care Teams Home Weatherizing Worker Relationship Specialty Start Date End Date Shellie Dhillon NP [address] [place] [address] PCP - General Family Medicine 10/30/23 documented as of this encounter
--- OUTSIDE RECORDS SUMMARY | 2025-01-13 22:52 | XMS_ITS | Encounter Summary ---
Author Organization [email or web address] Address [address] [facility] [address] [place] [address] Care Team Providers Care Director Of Estate Name Role Phone Shellie Dhillon NP Primary Care Provider [phone] Encounter Details Date Type Department Care Team (Latest Contact Info) Description 01/13/2025 Travel Social History Tobacco Use Types Packs/Day Years [...] is your housing situation today? I have lianajhony turner 11/27/[address] you [...] Description 05/21/2025 1:30 PM EDT Office Visit [facility] OPT[facility]ETRY [address] [place] [address] TarkaHamida, OD [address] [place] [address] documented as of this encounter Visit Diagnoses Not on filedocumented in this encounter Additional Health Concerns Assessment Noted Time PHQ-9 Depression Total Score: 9 11/28/19 25 11:41 AM EDT documented as of this encounter Care Teams Director Of Estate Relationship Specialty Start Date End Date Shellie Dhillon NP [address] [place] [address] PCP - General Family Medicine 10/30/23 documented as of this encounter
--- OUTSIDE RECORDS SUMMARY | 2025-01-13 22:52 | XMS_ITS | Encounter Summary ---
Author Organization [employer] Address [address] [facility] [address] [place] [address] Care Team Providers Care Business Development Associate Name Role Phone Shellie Dhillon NP Primary Care Provider [phone] Encounter Details Date Type Department Care Team ([facility] st Contact Info) Description 10/05/2024 Orders Only [facility] MEDICINE [address] [place] [address] Eva Summers MD [address] [place] [address] Chlamydia (Primary Dx) Social History Tobacco Use [...] Office Visit [facility] OPTOMETRY [address] [place], [place] [phone] Hamida Rajput, OD [address] [place] [address] documented as of this encounter Visit Diagnoses Diagnosis Chlamydia- Primary Other specified chlamydial infection, in conditions classified elsewhere and of unspecified site documented in this encounter Additional Health Concerns Assessment Noted Time PHQ-9 Depression Total Score: 0 09/29/19 23 10:34 AM EDT documented as of this encounter Care Teams Business Development Associate Relationship Specialty Start Date End Date Shlelie Dhillon NP [address] [place] [address] PCP - General Family Medicine 10/30/23 documented as of this encounter
--- OUTSIDE RECORDS SUMMARY | 2025-01-13 22:52 | XMS_ITS | Encounter Summary ---
Author Organization [employer] Address 75 [facility] 7t [place] [address] Care Team Providers Care Champion Of Sustainable Design Name Role Phone Shellie Dhillon NP Primary Care Provider [phone] Reason for Visit * Reason Onset Date Comments CHARTPREP 01/12/2025 Encounter Details Date Type Department Care Team ([facility] Contact Info) Description 01/12/2025 Telephone [facility] [address] [place] [address] Shellie Dhillon NP [address] [place] [address] CHARTPREP Social History Tobacco Use Types Packs/Day Years [...] encounter Miscellaneous Notes * Telephone Encounter - Alonzo Mcgowan [place] - 01/12/2025 9:58 AM EST Chart Prep Labs: done Images: done Referrals: appointment pending Vaccines due: Covid, Flu, and MCV4 Screenings: HIV screening Overdue care gaps: Not applicable documented in this encounter Plan of Treatment Upcoming Encounters Date Type Department Care Team (Late st Contact Info) Description 05/21/2025 1:30 PM EDT Office Visit [facility] OPTOMETRY [address] [place] [address] Hamida Rajput, OD [address] [place] [address] documented as of this encounter Visit Diagnoses Not on filedocumented in this encounter Additional Health Concerns Assessment Noted Time PHQ-9 Depression Total Score: 9 11/28/19 25 11:41 AM EDT documented as of this encounter Care Teams Champion Of Sustainable Design Relationship Specialty Start Date End Date Shellie Dhillon NP [address] [place] [address] PCP - General Family Medicine 10/30/23 documented as of this encounter
[2025-01-14 02:50] LABS: Bacterial Vaginosis PCR POSITIVE (Negative); Candida Group PCR NOT DETECTED (Not Detect); Candida glab krusei PCR NOT DETECTED (Not Detect); Trichomonas vaginalis PCR NOT DETECTED (Not Detect)
[2025-01-14 03:22] LABS: CT PCR DETECTED (Not Detect.); NG PCR NOT DETECTED (Not Detect.)
[2025-01-14 08:57] LABS: HIV Num 1 0.06 S/CO (0.00-0.99); ~HepC Num1 0.18 S/CO (0.00-0.79); ~Hepatitis C Antibody Nonreactive (Nonreactive)
[2025-01-14 09:15] LABS: Syphilis Screen Nonreactive (Nonreactive)
== END 2025-01-13 11:44 | disposition home or self-care (01) ==
LOC: HO.HHCL 11:43
PROVIDERS: PCP Nurse Practitioner; Visit Provider Nurse Practitioner
DX: Z12.4 Encounter for screening for malignant neoplasm of cervix (principal); Z11.4 Encounter for screening for human immunodeficiency virus [HIV]; Z11.59 Encounter for screening for other viral diseases; A64 Unspecified sexually transmitted disease
CPT/HCPCS: 36415; 81515; 86780; 86803; 87389; 87491; 87591; 88175